=== PATIENT | male | born 1995 | race Caucasian/White ===

== ENCOUNTER 2016-10-26 11:19 | Emergency (ER) | payer OTHER ==
[~2016-10-26] VITALS: Ht 182.9 cm; Wt 65.8 kg
[2016-10-26 13:04] LABS: PLATELET COUNT 237 x10^3mcL (130-400); RED CELL DISTRIBUTION WIDTH 12.8 % (11.5-14.5)
[2016-10-26 13:11] LABS: CALCIUM 9.3 mg/dL (8.5-10.1); CHLORIDE SERUM 105 mmol/L (98-107); CREATININE SERUM 0.8 mg/dL (0.7-1.3); GFR1 > 60 mL/min; GLUCOSE SERUM 98 mg/dL (74-106); POTASSIUM SERUM 4.1 mmol/L (3.5-5.1); SODIUM SERUM 140 mmol/L (136-145)
[2016-10-26 13:22] LABS: ALBUMIN 4.6 g/dL (3.4-5.0); ALKALINE PHOSPHATASE 82 U/L (46-116); ALT/SGPT 46 U/L (16-63); AST/SGOT 26 U/L (15-37); TOTAL PROTEIN, SERUM 7.7 g/dL (6.4-8.2)
[2016-10-26 14:51] LABS: BAND NEUTROPHIL 2 % (0-10); BASOPHIL 0 % (0-2); MONOCYTE 5 % (0-7); PLATELET MORPHOLOGY PLATELETS NORMAL; SEGMENTED NEUTROPHILS 90 % (37-75); rbc morphology (normal/abnorm) NORMAL (NORMAL)
[2016-10-26 15:11] VITALS: BP 114/63
== END 2016-10-26 15:12 | disposition home or self-care (01) ==
LOC: ED 11:19
PROVIDERS: Emergency Medicine
DX: I88.0 Nonspecific mesenteric lymphadenitis (principal); R11.2 Nausea with vomiting, unspecified
CPT/HCPCS: J7030; Q9967

== ENCOUNTER 2017-02-14 11:04 | Emergency (ER) | payer OTHER ==
[2017-02-14 14:00] VITALS: BP 117/81
[2017-02-15 05:17] LABS: RAPID PLASMA REAGIN Non Reactive (Non Reactive)
== END 2017-02-14 14:00 | disposition home or self-care (01) ==
LOC: ED 11:04
PROVIDERS: Emergency Medicine
DX: L29.9 Pruritus, unspecified (principal)
CPT/HCPCS: J0561

== ENCOUNTER 2020-09-21 21:35 | Inpatient (IN) | payer OTHER ==
[~2020-09-21] VITALS: Ht 182.9 cm; Wt 76.0 kg
[2020-09-21 21:43] VITALS: Ht 182.9 cm; Wt 76.0 kg
[2020-09-21 22:25] LABS: BASOPHIL % 0.7 % (0.2-1.5); PLATELET COUNT 220 x10^3mcL (152-348); RED CELL DISTRIBUTION WIDTH 12.9 % (12.1-16.2)
[2020-09-21 22:29] LABS: CALCIUM 9.5 mg/dL (8.5-10.1); CARBON DIOXIDE 28.6 mmol/L (21-32); CHLORIDE SERUM 102 mmol/L (98-107); GFR1 > 60 mL/min; GLUCOSE SERUM 119 mg/dL (74-106); POTASSIUM SERUM 4.3 mmol/L (3.5-5.1); SODIUM SERUM 139 mmol/L (136-145)
[2020-09-21 22:33] LABS: ALBUMIN 4.4 g/dL (3.4-5.0); ALKALINE PHOSPHATASE 93 U/L (46-116); ALT/SGPT 32 U/L (16-63); AST/SGOT 15 U/L (15-37); BILIRUBIN TOTAL 1.3 mg/dL (0.20-1.00); LIPASE 108 IU/L (73-393)
[2020-09-21 22:36] LABS: TOTAL PROTEIN, SERUM 8.4 g/dL (6.4-8.2)
--- NOTE | 2020-09-22 01:50 | NUR ---
PT RESTING IN POSITION OF COMFORT IN GURNEY. NO ACUTE DISTRESS NOTED. BREATHING EVEN AND UNLABORED. SAFETY MEASURES IN PLACE. GURNEY IN LOWEST POSITION. PT DENIES ANY DISCOMFORT AT THIS TIME. NO APPARENT CHANGES AT THIS TIME
--- NOTE | 2020-09-22 02:44 | NUR ---
RONAK FROM [facility] CALLED REGARDING PT. PER RONAK THERE IS A DISTENDED 11 MM APPENDIX SUGGESTING APPENDICITIS. MD DE JESUS MADE AWARE.
--- NOTE | 2020-09-22 03:40 | NUR ---
PT RESTING IN POSITION OF COMFORT. NO ACUTE DISTRESS NOTED. BREATHING EVEN AND UNLABORED. FULL CM AND O2 MONITOR IN PLACE. SAFETY MEASURES IN PLACE. NO APPARENT CHANGES AT THIS TIME.
--- NOTE | 2020-09-22 04:24 | NUR ---
PT AMBULATED TO RESTROOM AND BACK TO [facility] WITH STEADY GAIT. NO ACUTE DISTRESS NOTED. PLACED FULL CM AND O2 MONITOR ON PT. [facility] IN LOWEST POSITION, SAFETY MEASURES IN PLACE. CALL LIGHT WITHIN CARLOS, NO APPARENT CHANGES NOTED AT THIS TIME.
--- NOTE | 2020-09-22 05:20 | NUR ---
PT RESTING IN POSITION OF COMFORT. NO ACUTE DISTRESS NOTED. BREATHING EVEN AND UNLABORED. FULL CM AND O2 MONITOR IN PLACE. CALL LIGHT WITHTIN REACH, SAFETY MEASURES IN PLACE. NO APPARENT CHANGES NOTED AT THIS TIME
--- NOTE | 2020-09-22 06:41 | NUR ---
ATTEMPTED TO CALL TO GIVE REPORT AT EXT. [phone] X 3 WITH NO ANSWER
--- NOTE | 2020-09-22 06:54 | NUR ---
RECEIVED CALL FROM NANCY CHENG AND PROVIDED REPORT
--- NOTE | 2020-09-22 06:57 | NUR ---
PT ASSISTED ONTO W/C WITH NO ACUTE DISTRESS NOTED. BREATHING EVEN AND UNLABORED. PT TRANSFERRED TO MED/SURG FLOOR VIA W/C WITH HUMBERTO AL. PT AMBULATED TO MED/SURG NANCY QIU RN TO ASSUME CARE
--- NOTE | 2020-09-22 07:15 | NUR ---
PATIENT IS A/O X4. ANSWERS ALL COMMANDS AND QUESTIONS. MED SURG PATIENT. DENIES CHEST PAIN AND CHEST PRESSURE. DENIES VERTIGO AND PALPITATIONS. NO EDEMA NOTED. ON ROOM AIR. DENIES SOB. BREATHING E/U. LUNG SOUNDS CTA. NORMOACTIVE BOWELS X4. LAST BM 09/21/20. DENIES ABD PAIN. DENIES N/V. PATIENT STATES ABD PAIN HAS SUBSIDED SINCE ADMISSION WITH PAIN MEDS BEING GIVEN THROUGHOUT STAY. VOIDS FREELY. AMBULATES TO RR. SKIN IS CDI. DENIES ANY PAIN AT THIS TIME. LAC 20G. CDI. BED IN LOWEST AND LOCKED POSITION. CALL LIGHT WITHIN REACH.
--- NOTE | 2020-09-22 08:30 | NUR ---
PATIENT SIGNED CONSENT FOR APPENDECTOMY. DR PAK CAME TO BEDSIDE WITH PATIENT TO EXPLAIN PROCEDURE, BENEFITS AND RISKS.
--- NOTE | 2020-09-22 09:22 | NUR ---
PATIENT C/O DEAN 10/24. GAVE TYLENOL PRESCRIBED FOR DEAN. WILL F/U WITH EFFECT OF MEDICATION.
[2020-09-22 09:27] VITALS: BP 126/77
[2020-09-22 12:15] VITALS: BP 104/62
--- NOTE | 2020-09-22 12:15 | NUR ---
PATIENT RETURNED FROM POST OP SURGERY APPENDECTOMY. LAPAROSCOPIC. GENERAL ANESTHESIA. ABD INCISIONS X3 WITH BREE. POST OP ASSESSMENT PERFORMED. VITALS TAKEN AND CHARTED. WNL. WILL F/U WITH PAIN MEDICATIONS.
--- NOTE | 2020-09-22 12:31 | NUR ---
PATIENT C/O ABD PAIN 6/10 AT SITES WHERE BREE ARE LOCATED. GAVE NORCO PRESCRIBED FOR PAIN. WILL F/U WITH EFFECT OF MEDICATION.
[2020-09-22 12:45] VITALS: BP 102/59
[2020-09-22 13:15] VITALS: BP 97/58
[2020-09-22 16:47] VITALS: BP 105/54
--- NOTE | 2020-09-22 19:26 | NUR ---
RECEIVED PT FROM AM NURSE. A/OX4, FOLLOWS COMMANDS, SPEECH CLEAR. DENIES PAIN AT THIS TIME. M/S PT, DENIES CHEST PAIN, PRESSURE, AND PALPITATIONS. PULSES PALPABLE TO BUE/BLE. NO EDEMA NOTED. ON RA, NO RESPIRATORY DISTRESS AT THIS TIME, LS CTA, BREATHING UNL AND REGULAR. BS ACTIVE X4 QUADS, ABD FLAT, SOFT, AND NONTENDER. S/P APPENDECTOMY, 3 INCISION SITES W BREE, BANDAGES IN PLACE, NO ACTIVE BLEEDING OR SWELLING. IV LAC, BED IN LOW POSITION. CALL LIGHT WITHIN REACH. WILL CONTINUE TO MONITOR.
[2020-09-22 21:43] VITALS: BP 110/53
--- NOTE | 2020-09-22 23:58 | NUR ---
PT ASLEEP IN BED, EASILY AROUSABLE. DENIES ANY PAIN OR DIFFICULTY BREATHING AT THIS TIME. ON RA. IV INFUSING D5NS 20 MEQ KCL AT 80 ML/HR. BED IN LOW POSITION. CALL LIGHT WITHIN REACH. WILL CONTINUE TO MONITOR.
[2020-09-23 06:05] LABS: BASOPHIL % 0.1 % (0.2-1.5); PLATELET COUNT 197 x10^3mcL (152-348); RED CELL DISTRIBUTION WIDTH 12.9 % (12.1-16.2)
[2020-09-23 06:26] VITALS: BP 106/59
--- NOTE | 2020-09-23 07:13 | NUR ---
PT CALM AND COMFORTABLE IN BED, EASILY AROUSABLE. DENIES ANY PAIN AT THIS TIME. IV INFUSING D5NS 20MEQ KCL AT 80 ML/HR. NO RESPIRATORY DISTRESS AT THIS TIME. BED IN LOW POSITION. CALL LIGHT WITHIN RAECH. ENDORSED CARE TO AM NURSE.
--- NOTE | 2020-09-23 08:01 | NUR ---
RECEIVED REPORT FROM PM NURSE. A/OX4, FOLLOWS 2-STEP COMMANDS, PERRL +2 MICHAELA. HR RRR S1 S2 NOTED. PULSES EQUAL+PALPABLE, NO EDEMA NOTED, CAP REFILL <3 SEC, SKIN DRY+WARM, COLOR APPROPRIATE FOR ETHNICITY. LUNG SOUNDS CTA, RA, O2 SAT 98%. BOWEL SOUNDS HYPOACTIVE X4 QUADRANTS, LAST BM 09/21/20, PT DENIES BM OR PASSING GAS. PT CONTINENT OF BOWELS AND BLADDER, BRP. GLASS BLOCK INSTALLER STRENGTH +5 MICHAELA, PEDAL PUSH +5 MICHAELA, AMBULATORY, FULL ACTIVE ROM. 3 INCISIONS TO ABD W BREE, C/D/I, COVERED IN BAND-AIDS. PT HAS NO C/O PAIN AT THIS TIME. IV TO LAC RUNNING D5NS W 20 MEQ KCL AT 80 ML/HR. WILL CONTINUE TO MONITOR. BED IN LOWEST POSITION, RAILS UP, CALL LIGHT WITHIN REACH
[2020-09-23 08:21] VITALS: BP 106/59
[2020-09-23 08:27] VITALS: BP 107/60
[2020-09-23 08:29] VITALS: BP 107/60
[2020-09-23] MEDS ORDERED: TYL325 PO (10:59)
--- NOTE | 2020-09-23 12:24 | NUR ---
PT D/C. D/C EDUCATION PROVIDED, INFORMED PT TO MAKE FOLLOW-UP APPT W PCP AND [place] 10/01. EDUCATED ON CARE OF LAP APPY. PT VERBALIZES UNDERSTANDING. IV D/C, CATHETER TIP INTACT. PT HAS ALL BELONGINGS ON SELF, ALL PT NEEDS HAVE BEEN MET, PT HAS NO FURTHER QUESTIONS/CONCERNS,
== END 2020-09-23 12:25 | disposition home or self-care (01) | DRG 234 ==
LOC: ED 21:35 → MU 09-22 04:26
PROVIDERS: Surgery; ADMIT Internal Medicine; ATTEND Internal Medicine
PROC: 0DTJ4ZZ Resection of Appendix, Percutaneous Endoscopic Approach (ICD-10-PCS; principal; 2020-09-22 10:30)
DX: K35.80 Unspecified acute appendicitis (principal); D72.829 Elevated white blood cell count, unspecified; Z79.01 Long term (current) use of anticoagulants; Z79.891 Long term (current) use of opiate analgesic; Z79.899 Other long term (current) drug therapy
CPT/HCPCS: G0378; J0131; J0330; J2250; J2270; J2405; J2543; J2704; J2710; J3010; J3480; J3490; J7030; J7120; Q9967